=== PATIENT | female | born 1985 | race Caucasian/White ===

== ENCOUNTER 2016-11-05 14:34 | Outpatient (CLI) | payer OTHER | END 2016-11-05 14:35 | disposition home or self-care (01) | DX: O36.5930 Maternal care for other known or suspected poor fetal growth, third trimester, not applicable or unspecified (principal) ==

== ENCOUNTER 2016-11-13 | Outpatient (CLI) | payer OTHER | END 2016-11-13 17:10 | disposition home or self-care (01) ==

== ENCOUNTER 2016-11-22 10:02 | Outpatient (CLI) | payer OTHER | END 2016-11-22 10:03 | disposition home or self-care (01) | DX: O48.0 Post-term pregnancy (principal); Z3A.41 41 weeks gestation of pregnancy ==

== ENCOUNTER 2016-11-24 05:06 | Inpatient (IN) | payer OTHER ==
[2016-11-24] MEDS ORDERED: LACTATED RINGERS 1,000 ML IV ONE ×2 (05:42→06:46)
[2016-11-24] MEDS ORDERED: SUFENTA/BUPIV 0.4 MCG/0.0625% 150 ML EP ONE (06:34)
[2016-11-24] MEDS ORDERED: fentaNYL 100 MCG/2 ML VIAL ONE (06:34)
[2016-11-24] MEDS ORDERED: fentaNYL 100 MCG/2 ML VIAL IVP ONE (06:40)
[2016-11-24] MEDS ORDERED: ROPIVACAINE 0.2% PF 10 ML VIAL EPI ONE (06:40)
[2016-11-24] MEDS ORDERED: ePHEDrine 50 MG/ML AMP IVP PRN (07:43)
[2016-11-24] MEDS ORDERED: NALBUPHINE 20 MG/ML AMP IVP PRN (07:43)
[2016-11-24] MEDS ORDERED: diphenhydrAMINE INJ 50 MG/ML VIAL IVP PRN (07:43)
[2016-11-24] MEDS ORDERED: SUFENTA/BUPIV 0.4 MCG/0.0625% EPIDURAL 150 ML EP PRN (07:43)
[2016-11-24] MEDS ORDERED: LACTATED RINGERS 500 ML IV ONE (07:43)
[2016-11-24] MEDS ORDERED: METOCLOPRAMIDE 10 MG/2 ML VIAL IVP PRN (07:43)
[2016-11-24] MEDS ORDERED: ONDANSETRON 4 MG/2 ML VIAL IVP PRN (07:43)
[2016-11-24] MEDS ORDERED: NALOXONE 0.4 MG/ML VIAL IVP PRN (07:43)
[2016-11-24] MEDS ORDERED: OXYTOCIN/LACTATED RINGERS 250 ML IV SCH (09:00)
[2016-11-24] MEDS ORDERED: LIDOCAINE 1% 50 ML MDV ONE (13:58)
[2016-11-24] MEDS ORDERED: ACETAMINOPHEN 325 MG TABLET PO PRN (14:44)
[2016-11-24] MEDS ORDERED: MAGNESIUM HYDROXIDE 2,400 MG/30 ML UDC PO PRN (14:44)
[2016-11-24] MEDS ORDERED: OXYTOCIN/LACTATED RINGERS 250 ML IV ONE (14:48)
[2016-11-24] MEDS ORDERED: HYDROCORTISONE 1% CREAM 28 GM TUBE PR PRN (14:48)
[2016-11-24] MEDS ORDERED: WITCH HAZEL/GLYCERIN 1 EACH MED..PAD TOP PRN (14:48)
[2016-11-24] MEDS ORDERED: RHO(D) IMMUNE GLOBULIN 300 MCG SYRINGE IVP ONE (14:48)
[2016-11-24] MEDS: CELECOXIB 100 MG CAPSULE PO SCH (18:55)
[2016-11-24] MEDS: HYDROcod/ACETAM 5/325 MG TABLET PO PRN (18:59)
[2016-11-24] MEDS: HYDROCORTISONE/PRAMOXINE 10 GM PR PRN (19:19)
[2016-11-24] MEDS: DOCUSATE SODIUM 100 MG CAPSULE PO SCH (20:55)
[2016-11-25] MEDS: HYDROcod/ACETAM 5/325 MG TABLET PO PRN ×4 (00:24→15:41)
[2016-11-25] MEDS ORDERED: SODIUM CHLORIDE FLUSH 0.9% 10 ML SYRINGE IVP ONE ×2 (05:30→16:59)
[2016-11-25] MEDS: CELECOXIB 100 MG CAPSULE PO SCH ×2 (07:46→22:03)
[2016-11-25] MEDS: DOCUSATE SODIUM 100 MG CAPSULE PO SCH ×2 (07:46→22:03)
[2016-11-25] MEDS: FLUTICASONE/SALMETEROL 250/50 INHALER INH SCH ×2 (10:00→22:04)
[2016-11-25] MEDS: SIMETHICONE CHEW 80 MG TABLET PO SCH ×3 (17:15→23:34)
[2016-11-25] MEDS ORDERED: IOPAMIDOL-300 100 ML VIAL IVP ONE (17:40)
[2016-11-25] MEDS: ACETAMINOPHEN 500 MG TABLET PO SCH (18:34)
[2016-11-25] MEDS: oxyCODONE 5 MG TABLET PO SCH ×2 (18:35→23:44)
[2016-11-25] MEDS ORDERED: RHO(D) IMMUNE GLOBULIN 300 MCG SYRINGE IVP ONE (19:00)
[2016-11-25] MEDS ORDERED: ZOLPIDEM 5 MG TABLET PO PRN (19:38)
[2016-11-26] MEDS: ACETAMINOPHEN 500 MG TABLET PO SCH ×2 (04:50→14:52)
[2016-11-26] MEDS: oxyCODONE 5 MG TABLET PO SCH ×5 (04:51→17:20)
[2016-11-26] MEDS: FLUTICASONE/SALMETEROL 250/50 INHALER INH SCH (05:00)
[2016-11-26] MEDS: CELECOXIB 100 MG CAPSULE PO SCH (10:29)
[2016-11-26] MEDS: DOCUSATE SODIUM 100 MG CAPSULE PO SCH (10:29)
[2016-11-26] MEDS: SIMETHICONE CHEW 80 MG TABLET PO SCH (10:32)
[2016-11-26] MEDS: HYDROCORTISONE/PRAMOXINE 10 GM PR PRN (17:20)
== END 2016-11-26 18:45 | disposition home or self-care (01) | DRG 775 ==
PROC: 10D07Z6 Extraction of Products of Conception, Vacuum, Via Natural or Artificial Opening (ICD-10-PCS; principal; 2016-11-24)
PROC: 0DQR0ZZ Repair Anal Sphincter, Open Approach (ICD-10-PCS; 2016-11-24)
DX: O24.429 Gestational diabetes mellitus in childbirth, unspecified control (principal); O70.20 Third degree perineal laceration during delivery, unspecified; O76 Abnormality in fetal heart rate and rhythm complicating labor and delivery; O48.0 Post-term pregnancy; O26.893 Other specified pregnancy related conditions, third trimester; Z67.41 Type O blood, Rh negative; Z3A.41 41 weeks gestation of pregnancy; Z37.0 Single live birth

== ENCOUNTER 2017-06-22 19:02 | Outpatient (CLI) | payer OTHER ==
[2017-06-22] MEDS ORDERED: IOPAMIDOL-300 100 ML VIAL IVP ONE (21:09)
[2017-06-22] MEDS ORDERED: IOPAMIDOL-300 50 ML VIAL PO ONE (21:09)
--- NOTE | 2017-06-22 21:40 | CT Preliminary Report ---
Exam: CT Abdomen/Pelvis W/ IMPRESSION: 1. Appendicitis without evidence of perforation. 2. Moderate nonspecific mesenteric and right lower quadrant adenopathy. 3. Small amount of free cul-de-sac fluid. [facility] SITE ID: [id number]
--- NOTE | 2017-06-22 21:51 | CT Report ---
EXAM: CT ABDOMEN AND PELVIS EXAM DATE: 06/22/2017 09:13 PM. CLINICAL HISTORY: Abdominal pain, right lower quadrant. COMPARISONS: 11/25/2016. TECHNIQUE: Routine helical CT imaging was performed through the abdomen and pelvis. IV contrast: 100 mL Isovue-300. Enteric contrast: Oral. Reconstructions: Coronal and sagittal. In accordance with CT protocol optimization, one or more of the following dose reduction techniques w ere utilized for this exam: automated exposure control, adjustment of mA and/or KV based on patient s ize, or use of iterative reconstructive technique. FINDINGS: Lung Bases: Unremarkable. Liver: Normal. No masses. Gallbladder/Bile Ducts: Unremarkable. Spleen: Normal. Pancreas: Normal. Adrenal Glands: Normal. Kidneys: Normal. No masses or hydronephrosis. Peritoneal Cavity/Bowel: No free air nor free fluid. Multiple mild and moderately enlarged mesenteric lymph nodes. No masses or acute inflammatory process. Appendix measures 11 mm in cross-sectional diameter with mildly thickened and enhancing roman. Very s mall amount of adjacent edema. No extraluminal air nor focal fluid collections. Numerous small right lower quadrant mesenteric lymph nodes. Pelvic Organs: Small amount of free cul-de-sac fluid. The bladder and visualized pelvic organs are wi thin normal limits. Vasculature: No aneurysms or other significant abnormality. Bones: No significant abnormality. Other: None. IMPRESSION: 1. Appendicitis without evidence of perforation. 2. Moderate nonspecific mesenteric and right lower quadrant adenopathy. 3. Small amount of free cul-de-sac fluid. [facility] Referring Provider Line: [phone] SITE ID: [id number]
== END 2017-06-22 19:03 | disposition home or self-care (01) ==
LOC: DI 19:02
PROVIDERS: ATTEND Family Medicine
DX: K37 Unspecified appendicitis (principal); R10.31 Right lower quadrant pain; R59.0 Localized enlarged lymph nodes
CPT/HCPCS: 36415; 74177; 80053; 83690; 85025; 86140; Q9967

== ENCOUNTER 2017-06-22 19:55 | Outpatient (CLI) | payer OTHER ==
[2017-06-22 19:21] LABS: ALBUMIN/GLOBULIN RATIO 1.2 (1.0-2.2); BILIRUBIN,TOTAL 0.3 mg/dL (0.2-1.0); CALCIUM 8.9 mg/dL (8.5-10.3); CREATININE 0.5 mg/dL (0.4-1.0); POTASSIUM 3.8 mmol/L (3.5-5.0); TOTAL PROTEIN 7.4 g/dL (6.7-8.2)
[2017-06-22 19:33] LABS: BASOPHILS % (AUTO) 0.4 %; EOSINOPHILS # (AUTO) 0.3 10^3/uL (0.0-0.7); EOSINOPHILS % (AUTO) 2.5 %; HCT - HEMATOCRIT 36.2 % (37.0-47.0); HGB - HEMOGLOBIN 11.8 g/dL (12.0-16.0); LYMPHOCYTES % (AUTO) 28.2 %; MEAN CORPUSCULAR HEMOGLOBIN 27.2 pg (27.0-31.0); MEAN CORPUSCULAR HGB CONC 32.6 g/dL (32.0-36.0); MEAN CORPUSCULAR VOLUME 83.4 fL (81.0-99.0); MEAN PLATELET VOLUME 8.7 fL (7.9-10.8); MONOCYTES # (AUTO) 0.9 10^3/uL (0.0-1.0); NEUTROPHILS # (AUTO) 6.3 10^3/uL (1.5-6.6); NEUTROPHILS % (AUTO) 59.9 %; NUCLEATED RED BLOOD CELLS AUTO 0.1 /100WBC; RED BLOOD COUNT 4.35 10^6/uL (4.20-5.40); RED CELL DISTRIBUTION WIDTH 14.4 % (12.0-15.0); UNCORRECTED WHITE BLOOD COUNT 10.5 x10^3/uL; WHITE BLOOD COUNT 10.5 x10^3/uL (4.8-10.8)
== END 2017-06-22 19:56 | disposition home or self-care (01) ==
LOC: LAB.WCP 19:55
PROVIDERS: ATTEND Family Medicine
DX: R10.31 Right lower quadrant pain (principal)
CPT/HCPCS: 36415; 80053; 83690; 85025; 86140

== ENCOUNTER 2017-06-23 11:43 | Outpatient (CLI) | payer OTHER ==
[2017-06-23 12:12] LABS: BASOPHILS % (AUTO) 0.5 %; EOSINOPHILS # (AUTO) 0.2 10^3/uL (0.0-0.7); EOSINOPHILS % (AUTO) 2.5 %; HCT - HEMATOCRIT 36.3 % (37.0-47.0); HGB - HEMOGLOBIN 12.1 g/dL (12.0-16.0); LYMPHOCYTES # (AUTO) 2.7 10^3/uL (1.5-3.5); LYMPHOCYTES % (AUTO) 29.1 %; MEAN CORPUSCULAR HEMOGLOBIN 27.4 pg (27.0-31.0); MEAN CORPUSCULAR HGB CONC 33.3 g/dL (32.0-36.0); MEAN CORPUSCULAR VOLUME 82.2 fL (81.0-99.0); MEAN PLATELET VOLUME 7.9 fL (7.9-10.8); MONOCYTES # (AUTO) 0.7 10^3/uL (0.0-1.0); MONOCYTES % (AUTO) 7.4 %; NEUTROPHILS # (AUTO) 5.6 10^3/uL (1.5-6.6); NEUTROPHILS % (AUTO) 60.5 %; RED BLOOD COUNT 4.42 10^6/uL (4.20-5.40); RED CELL DISTRIBUTION WIDTH 14.5 % (12.0-15.0); UNCORRECTED WHITE BLOOD COUNT 9.2 x10^3/uL; WHITE BLOOD COUNT 9.2 x10^3/uL (4.8-10.8)
== END 2017-06-23 11:44 | disposition home or self-care (01) ==
LOC: LAB 11:43
PROVIDERS: ATTEND Surgery
DX: K37 Unspecified appendicitis (principal)
CPT/HCPCS: 36415; 85025

== ENCOUNTER 2017-11-08 16:45 | Emergency (ER) | payer OTHER ==
[2017-11-08 17:09] LABS: BILIRUBIN,URINE NEGATIVE (NEGATIVE); GLUCOSE, URINE (UA) NEGATIVE (NEGATIVE); KETONES,URINE (UA) NEGATIVE (NEGATIVE); LEUKOCYTE ESTERASE, URINE SMALL (NEGATIVE); NITRITE,URINE NEGATIVE (NEGATIVE); OCCULT BLOOD,URINE TRACE-INTA (NEGATIVE); PROTEIN,URINE NEGATIVE (NEGATIVE); UROBILINOGEN,URINE 0.2 (NORMAL) E.U./dL (NORMAL)
[2017-11-08 17:13] LABS: CLARITY,URINE CLEAR (CLEAR)
[2017-11-08 17:14] LABS: HCG UR QUAL POSITIVE
[2017-11-08] MEDS ORDERED: RHO(D) IMMUNE GLOBULIN 300 MCG SYRINGE IM ONE (17:17)
--- NOTE | 2017-11-08 17:18 | ED Physician Documentation ---
PD HPI ABD PAIN - Stated complaint Stated Complaint: FEMALE /6 WEEKS - Chief complaint Chief Complaint: Abd Pain - History obtained from History obtained from: Patient - History of Present Illness Timing - onset: Other ( at 6 weeks by dates presents with slight vaginal bleeding over the last 2 days and slight cramping. Blood type is known O- from prior workup.) Review of Systems Constitutional: denies: Fever, Chills GI: denies: Abdominal Pain, Nausea, Vomiting, Diarrhea : denies: Dysuria, Frequency, Hesitancy PD PAST MEDICAL HISTORY - Past Medical History Respiratory: Asthma - Past Surgical History Past Surgical History: No - Present Medications Home Medications: Ambulatory Orders Medication Instructions Recorded Confirmed Fluticasone/Salmeterol [Advair 1 puffs INH DAILY 06/01/16 11/08/17 100-50 Diskus] Pnv95/Ferrous Fumarate/FA 1 tab PO DAILY 06/01/16 11/08/17 [ Tablet] - Allergies Allergies/Adverse Reactions: Allergies Allergy/AdvReac Type Severity Reaction Status Date / Time Penicillins AdvReac Rash Verified 11/08/17 16:52 - Social History Does the pt smoke?: No Smoking Status: Never smoker Does the pt drink ETOH?: No Does the pt have substance abuse?: No - Immunizations Immunizations are current?: Yes - POLST Patient has POLST: No PD ED PE NORMAL - Vitals Vital signs reviewed: Yes - General General: Alert and oriented X 3, No acute distress - Abdomen Abdomen: Soft, Non tender - Female Female : Other (I am unable to visualize an intrauterine on bedside ultrasound.) - Neuro Neuro: Alert and oriented X 3, Normal speech Results - Vitals Vitals: Vital Signs - 24 hr 11/08/17 16:49 Temperature 35.9 C L Heart Rate 84 Respiratory 18 Rate Blood Pressure 136/69 H O2 Saturation 100 Oxygen O2 Source Room air - Labs Labs: Laboratory Tests 11/08/17 11/08/17 11/08/17 17:00 17:00 17:25 HCG, Quant 8051.00 Urine Color STRAW Urine Clarity CLEAR Urine pH 6.0 Ur Specific Holt <=1.005 <=1.005 Urine Protein NEGATIVE Urine Glucose (UA) NEGATIVE Urine Ketones NEGATIVE Urine Occult Blood TRACE-INTA Urine Nitrite NEGATIVE Urine Bilirubin NEGATIVE Urine Urobilinogen 0.2 (NORMAL) Ur Leukocyte Esterase SMALL H Urine RBC 0-5 Urine WBC 6-10 H Ur Squamous Epith Cells MOD Squamous H Urine Bacteria Rare Ur Microscopic Review INDICATED Urine HCG, Qual POSITIVE - Rads (name of study) Pelvic sono Radiology: Prelim report reviewed (yolk sac/gs 5w3d without obvious embryo) PD MEDICAL DECISION MAKING - ED course ED course: 32yo with mild VB and cramping without obvious IUP and HCG of 8051. Sono is equivocal and followup for rpt HCG is advised. Departure - Departure Disposition: 01 Home, Self Care Clinical Impression: Threatened affecting intrauterine Condition: Good Record reviewed to determine appropriate education?: Yes Instructions: ED Miscarriage Poss Comments: Follow-up with Dr. Olson in 2-3 days time, she will probably want to repeat your beta-hCG to see which direction it is going and potentially another ultrasound in a week or 2. Return if worsening.
[2017-11-08 17:28] LABS: BACTERIA,URINE Rare /HPF (None Seen); RBC,URINE 0-5 /HPF (0-5); SQUAMOUS EPITHELIAL CELL,UR MOD Squamous (<= Few)
--- NOTE | 2017-11-08 19:36 | Ultrasound Report ---
EXAM: FIRST TRIMESTER OBSTETRIC ULTRASOUND (Less than 11 weeks) EXAM DATE: 11/08/2017 06:41 PM. CLINICAL HISTORY: Cramping/bleeding, 6 weeks. LMP: 09/27/2017. COMPARISONS: None. TECHNIQUE: Transabdominal and transvaginal ultrasound examination with static image documentation. CLINICAL DATES: EGA 6 weeks 0 days. ASSESSMENT: Uterus: Intrauterine gestational sac with a mean gestational sac diameter of 7 mm corresponding to 5 weeks 3 days. Yolk sac seen. No embryo identified. MATERNAL STRUCTURES: Uterus: Anteverted. Unremarkable. Cervix: Closed. Right Ovary/Adnexa: Right ovarian corpus luteum measuring 1.9 cm. The ovary measures 2.6 x 2.4 x 3.0 cm, volume 9.7 cc. Left Ovary/Adnexa: Unremarkable. The ovary measures 1.5 x 1.7 x 2.0 cm, volume 2.7 cc. Free Fluid: None. Other: None. IMPRESSION: 1. Intrauterine gestational sac with yolk sac identified although no embryo is seen. This can be norm al due to the early age of the although correlation with serial quantitative hCG is suggest ed to assess viability. In clinically confusing cases, follow-up ultrasound in 10-14 days may be help [facility] Referring Provider Line: [phone] SITE ID: [id number]
--- NOTE | 2017-11-08 19:36 | Ultrasound Preliminary Report ---
Exam: US OB FIRST TRIMESTER IMPRESSION: 1. Intrauterine gestational sac with yolk sac identified although no embryo is seen. This can be norm al due to the early age of the although correlation with serial quantitative hCG is suggest ed to assess viability. In clinically confusing cases, follow-up ultrasound in 10-14 days may be help ful. [facility] SITE ID: [id number]
[2017-11-08 19:50] VITALS: BP 119/62
== END 2017-11-08 19:53 | disposition home or self-care (01) ==
LOC: ED 16:45
DX: O20.0 Threatened abortion (principal); O99.511 Diseases of the respiratory system complicating pregnancy, first trimester; J45.909 Unspecified asthma, uncomplicated; Z3A.01 Less than 8 weeks gestation of pregnancy
CPT/HCPCS: 36415; 76801; 76817; 81001; 81003; 81025; 84702; 96372; 99283; 99284

== ENCOUNTER 2017-11-12 09:33 | Outpatient (CLI) | payer OTHER | END 2017-11-12 09:34 | disposition home or self-care (01) | LOC: LAB 09:33 | PROVIDERS: ATTEND Obstetrics & Gynecology | DX: O20.0 Threatened abortion (principal) | CPT/HCPCS: 36415; 84702 ==

== ENCOUNTER 2017-11-13 08:18 | Outpatient (CLI) | payer OTHER ==
--- NOTE | 2017-11-13 12:04 | Ultrasound Report ---
REVISED: THIS REPORT WAS ORIGINALLY SIGNED ON 11/13/2017 @ 1235 . ORDERS LINKED ON 12/15/2017. FIRST TRIMESTER OB ULTRASOUND: CLINICAL INDICATION: Threatened , check viability. TECHNIQUE: Transabdominal pelvic ultrasound performed for global evaluation. Transvaginal pelvic ultrasound performed for detailed evaluation. Real-time scanning performed and static images obtained. COMPARISON: 11/08/2017. LAST MENSTRUAL PERIOD: 09/27/2017 Clinical Age: 6 weeks 5 days US Age: 6 weeks 1 day Heart Rate: 128 bpm EDC: 07/04/2018 US EDC: 07/08/2018 FINDINGS There is a single viable intrauterine gestation. heart rate is 128 BPM. By crown rump length, fetus measures 6 weeks 1 day (6 weeks 5 days by LMP). No perigestational hemorrhage is identified. The gestational sac does not appear to reside in the cornu. The right ovary measures 4.0 x 2.9 x 2.4 cm, and contains a 2.8 cm corpus luteum. The left ovary measures 2.3 x 2.1 x 1.2 cm, and is unremarkable. Trace free fluid is present. IMPRESSION: SINGLE VIABLE INTRAUTERINE GESTATION, WITH SIZE IN KEEPING WITH LMP DATING. NO PERIGESTATIONAL HEMORRHAGE. TD: 11/13/2017 11:33 MTDD
== END 2017-11-13 08:19 | disposition home or self-care (01) ==
LOC: DI 08:18
PROVIDERS: ATTEND Obstetrics & Gynecology
DX: O20.0 Threatened abortion (principal)
CPT/HCPCS: 76801; 76817

== ENCOUNTER 2017-11-19 10:27 | Outpatient (CLI) | payer OTHER | END 2017-11-19 10:28 | disposition home or self-care (01) | LOC: LAB.R 10:27 | PROVIDERS: ATTEND Obstetrics & Gynecology | DX: Z11.3 Encounter for screening for infections with a predominantly sexual mode of transmission (principal) | CPT/HCPCS: 87491; 87591 ==

== ENCOUNTER 2017-12-09 07:39 | Outpatient (CLI) | payer OTHER ==
[2017-12-09 08:09] LABS: BASOPHILS % (AUTO) 0.6 %; EOSINOPHILS # (AUTO) 0.3 10^3/uL (0.0-0.7); EOSINOPHILS % (AUTO) 3.4 %; HGB - HEMOGLOBIN 11.6 g/dL (12.0-16.0); LYMPHOCYTES # (AUTO) 2.5 10^3/uL (1.5-3.5); LYMPHOCYTES % (AUTO) 34.3 %; MEAN CORPUSCULAR HEMOGLOBIN 26.7 pg (27.0-31.0); MEAN CORPUSCULAR HGB CONC 33.2 g/dL (32.0-36.0); MEAN CORPUSCULAR VOLUME 80.4 fL (81.0-99.0); MEAN PLATELET VOLUME 8.2 fL (7.9-10.8); MONOCYTES # (AUTO) 0.5 10^3/uL (0.0-1.0); MONOCYTES % (AUTO) 6.8 %; NEUTROPHILS # (AUTO) 4.1 10^3/uL (1.5-6.6); NEUTROPHILS % (AUTO) 54.9 %; PLT - PLATELET COUNT 276 10^3/uL (130-450); RED BLOOD COUNT 4.33 10^6/uL (4.20-5.40); RED CELL DISTRIBUTION WIDTH 15.9 % (12.0-15.0); WHITE BLOOD COUNT 7.4 x10^3/uL (4.8-10.8)
[2017-12-09 08:38] LABS: HB2 TOTAL 13.1 g/dL; HEMOGLOBIN A1C 0.58 g/dL; HEMOGLOBIN A1C % 6.2 % (4.6-6.2)
[2017-12-09 09:08] LABS: BILIRUBIN,URINE NEGATIVE (NEGATIVE); GLUCOSE, URINE (UA) NEGATIVE (NEGATIVE); KETONES,URINE (UA) NEGATIVE (NEGATIVE); LEUKOCYTE ESTERASE, URINE TRACE (NEGATIVE); NITRITE,URINE NEGATIVE (NEGATIVE); OCCULT BLOOD,URINE SMALL (NEGATIVE); PROTEIN,URINE NEGATIVE (NEGATIVE); UROBILINOGEN,URINE 0.2 (NORMAL) E.U./dL (NORMAL)
[2017-12-09 09:17] LABS: BACTERIA,URINE Many /HPF (None Seen); CLARITY,URINE HAZY (CLEAR); MUCUS,URINE Marked Strands; RBC,URINE 0-5 /HPF (0-5); SQUAMOUS EPITHELIAL CELL,UR MANY Squamous (<= Few)
[2017-12-10 13:27] LABS: HEPATITIS C ANTIBODY NON-REACTIVE (NON-REACTIVE)
[2017-12-10 13:28] LABS: HEPATITIS B SURFACE ANTIGEN NON-REACTIVE (NON-REACTIVE)
[2017-12-10 15:22] LABS: HIV AG/AB 4TH GEN NON-REACTIVE (NON-REACTIVE)
== END 2017-12-09 07:40 | disposition home or self-care (01) ==
LOC: LAB 07:39
PROVIDERS: ATTEND Obstetrics & Gynecology
DX: Z36.9 Encounter for antenatal screening, unspecified (principal); Z3A.01 Less than 8 weeks gestation of pregnancy
CPT/HCPCS: 36415; 81001; 81599; 82950; 83036; 85025; 86592; 86762; 86803; 86850; 86870; 86900; 86901; 87340; 87389

== ENCOUNTER 2017-12-15 12:02 | Outpatient (CLI) | payer OTHER ==
[2017-12-15 12:38] LABS: BASOPHILS % (AUTO) 0.5 %; EOSINOPHILS # (AUTO) 0.2 10^3/uL (0.0-0.7); EOSINOPHILS % (AUTO) 2.2 %; HGB - HEMOGLOBIN 12.3 g/dL (12.0-16.0); LYMPHOCYTES # (AUTO) 2.6 10^3/uL (1.5-3.5); LYMPHOCYTES % (AUTO) 28.7 %; MEAN CORPUSCULAR HEMOGLOBIN 26.7 pg (27.0-31.0); MEAN CORPUSCULAR HGB CONC 33.2 g/dL (32.0-36.0); MEAN CORPUSCULAR VOLUME 80.4 fL (81.0-99.0); MONOCYTES # (AUTO) 0.6 10^3/uL (0.0-1.0); MONOCYTES % (AUTO) 6.3 %; NEUTROPHILS # (AUTO) 5.7 10^3/uL (1.5-6.6); NEUTROPHILS % (AUTO) 62.3 %; PLT - PLATELET COUNT 303 10^3/uL (130-450); RED CELL DISTRIBUTION WIDTH 15.3 % (12.0-15.0); WHITE BLOOD COUNT 9.1 x10^3/uL (4.8-10.8)
[2017-12-15 12:42] LABS: BILIRUBIN,URINE NEGATIVE (NEGATIVE); GLUCOSE, URINE (UA) NEGATIVE (NEGATIVE); KETONES,URINE (UA) NEGATIVE (NEGATIVE); LEUKOCYTE ESTERASE, URINE NEGATIVE (NEGATIVE); NITRITE,URINE NEGATIVE (NEGATIVE); OCCULT BLOOD,URINE LARGE (NEGATIVE); PH,URINE 5.5 PH (5.0-7.5); PROTEIN,URINE NEGATIVE (NEGATIVE); UROBILINOGEN,URINE 0.2 (NORMAL) E.U./dL (NORMAL)
[2017-12-15 12:43] LABS: CLARITY,URINE CLEAR (CLEAR)
== END 2017-12-15 12:03 | disposition home or self-care (01) ==
LOC: LAB 12:02
PROVIDERS: ATTEND Obstetrics & Gynecology
DX: Z01.812 Encounter for preprocedural laboratory examination (principal); O02.1 Missed abortion; Z3A.11 11 weeks gestation of pregnancy
CPT/HCPCS: 36415; 81003; 85025; 86850; 86870; 86900; 86901

== ENCOUNTER 2017-12-16 10:46 | Day surgery (SDC) | payer OTHER ==
[2017-12-16] MEDS ORDERED: LACTATED RINGERS 1,000 ML IV ONE (11:17)
--- NOTE | 2017-12-16 12:27 | PREOP HISTORY & PHYSICAL ---
DATE OF SERVICE: 12/16/2017 Physician: Jonn Glaser MD PATIENT IDENTIFICATION: The patient is a 32-year-old G2, P1, female who presents at 11 weeks EGA. HISTORY OF PRESENT ILLNESS: Missed . The patient was seen in the clinic yesterday, at which time because of vaginal bleeding she had a transvaginal ultrasound, which showed an 11-week size gestation without any cardiac activity. Doppler flow was utilized and still no cardiac activity is seen. She has a history of having had some bleeding early in her . She received RhoGAM for that and at 8 weeks she had an ultrasound, which documented a live gestation. She denies any previous history of miscarriages. She recently has delivered a healthy infant. She is noted to be Rh negative and she has received RhoGAM in the past. PAST MEDICAL HISTORY: Gestational Diabetes, Asthma. SURGICAL HISTORY: None. She denies any C-sections or D and C's. ALLERGIES: PENICILLIN, WHICH CAUSES RASH. CURRENT MEDICATIONS 1. vitamins. 2. Advair. HABITS: The patient drinks alcohol only occasionally. Denies use of tobacco, street or addictive drugs. SOCIAL HISTORY: The patient is and lives with her spouse and children. Her is active duty [employer]. FAMILY HISTORY: Positive for diabetes, hypertension, myocardial infarction. 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 REVIEW OF SYSTEMS: Negative with the exception of the need for glasses. PHYSICAL EXAMINATION GENERAL: The patient is a well-developed, well-nourished female. She is in no acute distress at this time. VITAL SIGNS: Weight 74.6 kg. Height 5 feet 5 inches. Blood pressure 106/64. She is saturating 100% on room air. Pulse is 84. HEENT: Pupils equal, round. Extraocular muscles intact. Thyroid is not palpably enlarged. HEART: Regular rate and rhythm without murmurs. LUNGS: Lung leong are clear without rales or wheezes. ABDOMEN: Soft, nontender without evidence of any surgical scars. EXTREMITIES: Showed no evidence of any calf tenderness. PELVIC: She had a previous ultrasound, which showed an 8-week gestation without cardiac activity. DIAGNOSIS: Eleven weeks with 8-week miscarriage. This is 3 weeks following the demise. Options were presented to the patient, which include observation versus the use of Cytotec. She requests utilizing dilatation and curettage. Risks and benefits were explained to the patient including those, but not limited to bleeding, infection, injury to pelvic organs, which include the uterus, tubes, ovaries, bowel, bladder and ureters. She is aware of the potential for deep venous thrombosis with pulmonary embolus as well as postop adhesions, which could cause pain, bowel obstruction and infertility. She is also aware of the possibility of retained products of conception. TD: 12/16/2017 12:25 MTDSanto
[2017-12-16] MEDS ORDERED: KETOROLAC 30 MG/ML VIAL IVP ONE (12:40)
[2017-12-16] MEDS ORDERED: PROPOFOL 200 MG/20 ML VIAL IVP ONE (12:40)
[2017-12-16] MEDS ORDERED: ONDANSETRON 4 MG/2 ML VIAL IVP ONE (12:40)
[2017-12-16] MEDS ORDERED: DEXAMETHASONE 4 MG/ML VIAL IVP ONE (12:40)
[2017-12-16] MEDS ORDERED: fentaNYL 100 MCG/2 ML VIAL IVP ONE (12:40)
--- NOTE | 2017-12-16 13:56 | OPERATIVE REPORT ---
DATE OF SERVICE: 12/16/2017 Physician: Jonn Glaser MD PREOPERATIVE DIAGNOSIS: Eleven weeks' gestation with 8-week missed AB. POSTOPERATIVE DIAGNOSIS: Eleven weeks' gestation with 8-week missed AB. NAME OF PROCEDURE: Sharp and Suction dilation and curettage. SURGEON: Jonn Glaser MD ANESTHESIA: Leora Barillas, general anesthetic with LMA. FINDINGS: Uterus sounded to 9 cm. It was noted to be already dilated up to roughly 8 mm. ESTIMATED BLOOD LOSS: 150 mL COMPLICATIONS: None. TISSUE TO PATHOLOGY: Products of conception. DESCRIPTION OF PROCEDURE: Following adequate laryngeal mask airway anesthesia, the patient was placed in the supine position in [facility]. At this point, she was prepped and draped in the usual fashion. A timeout was performed, which concerns were identified such as a PENICILLIN ALLERGY, as well as asthma. At this point, a speculum was placed in the vagina. The cervix was visualized, grasped with a single-tooth tenaculum. Pelvic examination previously revealed an anterior oriented uterus. The uterus was sounded to 9 cm. At this point, a dilator was placed, which was roughly 6 mm. There was no resistance felt. This was dilated up to 9 mm, at which time a resistance was noted. A 9 mm curved suction curette was then placed through the cervix into the uterine cavity. Suction was applied and then rotation was accomplished. The catheter was rotated and gently withdrawn with additional tissue being removed. A flash of clear amniotic fluid was noted. Following this, no further tissue was removed. The suction catheter was replaced a second time , suction applied and rotation was accomplished, and then the catheter was removed. No further tissue was noted at this time and bleeding was noted to be minimal. The endometrial cavity was gently curetted in all 4 quadrants. No further tissue was removed and the suction catheter was placed a third and last time. Once again, no further tissue was removed and the bleeding was minimal. Methergine 0.2 mg was injected IM as that she had asthma. The cervix was released from the single-tooth tenaculum. There was some bleeding from the tenaculum sites. Pressure was applied for roughly a minute and a half and the bleeding resolved. At this point, the procedure was terminated. Sponge and needle counts were correct. The patient was taken to recovery in stable condition. TD: 12/16/2017 13:55 MTDD
[2017-12-16] MEDS ORDERED: RHO(D) IMMUNE GLOBULIN 300 MCG SYRINGE IM ONE (14:00)
[2017-12-16 14:44] VITALS: BP 115/60
== END 2017-12-16 10:47 | disposition home or self-care (01) ==
LOC: SDS 10:46
PROVIDERS: ATTEND Obstetrics & Gynecology
PROC: 10D17ZZ Extraction of Products of Conception, Retained, Via Natural or Artificial Opening (ICD-10-PCS; principal; 2017-12-16 11:45)
DX: O02.1 Missed abortion (principal)
CPT/HCPCS: 59820; J7120

== ENCOUNTER 2018-04-12 08:00 | Outpatient (CLI) | payer OTHER ==
[2018-04-12 12:46] LABS: HCG,QUALITATIVE BLOOD POSITIVE
== END 2018-04-12 08:01 ==
LOC: LAB.WCP 08:00
PROVIDERS: ATTEND Physician Assistant
DX: Z32.01 Encounter for pregnancy test, result positive (principal)
CPT/HCPCS: 36415; 84703

== ENCOUNTER 2018-05-19 10:14 | Outpatient (CLI) | payer OTHER ==
[2018-05-19 12:25] LABS: BILIRUBIN,URINE NEGATIVE (NEGATIVE); GLUCOSE, URINE (UA) NEGATIVE (NEGATIVE); KETONES,URINE (UA) NEGATIVE (NEGATIVE); LEUKOCYTE ESTERASE, URINE TRACE (NEGATIVE); NITRITE,URINE NEGATIVE (NEGATIVE); OCCULT BLOOD,URINE NEGATIVE (NEGATIVE); PROTEIN,URINE NEGATIVE (NEGATIVE); UROBILINOGEN,URINE 0.2 (NORMAL) E.U./dL (NORMAL)
[2018-05-19 12:27] LABS: BASOPHILS % (AUTO) 0.5 %; EOSINOPHILS # (AUTO) 0.1 10^3/uL (0.0-0.7); EOSINOPHILS % (AUTO) 1.3 %; HGB - HEMOGLOBIN 11.7 g/dL (12.0-16.0); LYMPHOCYTES # (AUTO) 2.4 10^3/uL (1.5-3.5); LYMPHOCYTES % (AUTO) 27.1 %; MEAN CORPUSCULAR HEMOGLOBIN 26.8 pg (27.0-31.0); MEAN CORPUSCULAR HGB CONC 33.4 g/dL (32.0-36.0); MEAN CORPUSCULAR VOLUME 80.2 fL (81.0-99.0); MEAN PLATELET VOLUME 8.9 fL (7.9-10.8); MONOCYTES # (AUTO) 0.7 10^3/uL (0.0-1.0); MONOCYTES % (AUTO) 7.8 %; NEUTROPHILS # (AUTO) 5.6 10^3/uL (1.5-6.6); NEUTROPHILS % (AUTO) 63.3 %; PLT - PLATELET COUNT 295 10^3/uL (130-450); RED BLOOD COUNT 4.37 10^6/uL (4.20-5.40); RED CELL DISTRIBUTION WIDTH 15.5 % (12.0-15.0); WHITE BLOOD COUNT 8.8 x10^3/uL (4.8-10.8)
[2018-05-19 12:40] LABS: CLARITY,URINE CLEAR (CLEAR)
[2018-05-19 12:41] LABS: BACTERIA,URINE Few /HPF (None Seen); RBC,URINE 0-5 /HPF (0-5); SQUAMOUS EPITHELIAL CELL,UR MOD Squamous (<= Few)
[2018-05-20 13:51] LABS: HEPATITIS C ANTIBODY NON-REACTIVE (NON-REACTIVE)
[2018-05-20 14:56] LABS: HEPATITIS B SURFACE ANTIGEN NON-REACTIVE (NON-REACTIVE)
[2018-05-20 15:11] LABS: HIV AG/AB 4TH GEN NON-REACTIVE (NON-REACTIVE)
== END 2018-05-19 10:15 | disposition home or self-care (01) ==
LOC: LAB.N 10:14
PROVIDERS: ATTEND Obstetrics & Gynecology
DX: Z34.81 Encounter for supervision of other normal pregnancy, first trimester (principal)
CPT/HCPCS: 36415; 81001; 81599; 85025; 86592; 86762; 86803; 86850; 86870; 86900; 86901; 87340; 87389

== ENCOUNTER 2018-07-05 08:00 | Outpatient (CLI) | payer OTHER | END 2018-07-05 08:01 | LOC: LAB.N 08:00 | PROVIDERS: ATTEND Obstetrics & Gynecology | DX: Z36.89 Encounter for other specified antenatal screening (principal) | CPT/HCPCS: 36415; 81599 ==

== ENCOUNTER 2018-07-15 10:22 | Outpatient (CLI) | payer OTHER | END 2018-07-15 10:23 | LOC: LAB.R 10:22 | PROVIDERS: ATTEND Obstetrics & Gynecology | DX: R82.99 Other abnormal findings in urine (principal) | CPT/HCPCS: 87086; 87181 ==

== ENCOUNTER 2018-08-04 19:49 | Outpatient (CLI) | payer OTHER ==
[2018-08-04 20:36] VITALS: BP 116/59
--- NOTE | 2018-08-04 21:01 | PROVIDER PROGRESS NOTE ---
Subjective - Prog Note Date Prog Note Date: 08/04/18 Prog Note Time: 19:40 - Subjective Subjective: Nolvia Zamudio is a 33-year-old 3 para 1011 At 20 weeks 5 days EGA who reports left groin pain and back pain and with an associated light di scharge on her panties. She is recently been treated for an E. coli urinary tract infection is finished a course of antibiotics. She has no bladder pain, fever, dysuria or urgency. She denies uterine contractions or abdominal pain. Objective - Vital Signs/Intake & Output Vital Signs: Vital Signs x48h Temp Pulse Resp BP Pulse Ox 08/04/18 20:17 98.6 F 76 18 116/59 L 99 Exam - Exam Vital Signs: Vital Signs (72 hours) 08/04/18 20:17 Temperature 98.6 F Heart Rate [ 76 Radial] Respiratory 18 Rate Blood Pressure 116/59 L [Right Brachial artery] O2 Saturation 99 General: Alert, No acute distress HEENT: Mucous membr. moist/pink Abdomen: Normal bowel sounds, No tenderness, No hepatospenomegaly, Other (Uterus flaccid nontender, heart tones present. Pressure above the left inguinal ligament reproduces the pain.. Patient declines cervical exam) Assessment/Plan - Assessment/Plan Assessment: Pain is thought to be musculoskeletal in nature or round ligament pain. Patient is a dancer and quite physically active. By physical exam there was no evidence of hernia. Patient is already been referred to pelvic PT. Plan: Patient discharged home with instructions to follow-up with pelvic PT. If patient's UA is concerning we will call her tomorrow and prescribed antibiotic if necessary.
[2018-08-04 21:06] LABS: BILIRUBIN,URINE NEGATIVE (NEGATIVE); GLUCOSE, URINE (UA) NEGATIVE (NEGATIVE); KETONES,URINE (UA) NEGATIVE (NEGATIVE); LEUKOCYTE ESTERASE, URINE TRACE (NEGATIVE); NITRITE,URINE NEGATIVE (NEGATIVE); OCCULT BLOOD,URINE NEGATIVE (NEGATIVE); PROTEIN,URINE NEGATIVE (NEGATIVE); UROBILINOGEN,URINE 0.2 (NORMAL) E.U./dL (NORMAL)
[2018-08-04 21:20] LABS: BACTERIA,URINE Few /HPF (None Seen); CLARITY,URINE CLEAR (CLEAR); RBC,URINE 0-5 /HPF (0-5); SQUAMOUS EPITHELIAL CELL,UR MOD Squamous (<= Few)
== END 2018-08-04 21:05 | disposition home or self-care (01) ==
LOC: WFO 19:49 → FBP 19:52 → WFO 21:05
PROVIDERS: ATTEND Obstetrics & Gynecology
DX: O99.89 Other specified diseases and conditions complicating pregnancy, childbirth and the puerperium (principal); M54.9 Dorsalgia, unspecified; R10.32 Left lower quadrant pain; Z3A.20 20 weeks gestation of pregnancy
CPT/HCPCS: 81001; 85025; 87086; 99212

== ENCOUNTER 2018-08-10 12:41 | Outpatient (CLI) | payer OTHER ==
--- NOTE | 2018-08-10 14:12 | Ultrasound Report ---
Reason: ENCTR FOR SCREENING Procedure Date: 08/10/2018 Accession Number: [id number] / [id number] Procedure: US - OB Detailed Eval CPT Code: FULL RESULT: EXAM: COMPLETE OBSTETRICAL ULTRASOUND EXAM DATE: 08/10/2018 01:41 PM. CLINICAL HISTORY: anatomic survey. COMPARISON: None. TECHNIQUE: Real-time sonographic evaluation of the fetus performed by the security system analyst. Multiple medical representative static images were saved for review. DATING: EGA 21 weeks 3 days with GAMAL 12/18/2018 based on last menstrual period 03/13/2018. EGA 21 weeks 4 days with GAMAL 12/17/2018 based on the current ultrasound. GENERAL EVALUATION [place] . Cardiac activity: 161 bpm. movement: Present Presentation: Breech Placenta: Anterior position. No evidence for previa. Umbilical cord: 3 vessel cord. Central placental cord origin. Amniotic fluid: Subjectively normal. MVP 4.1 cm. BIOMETRY Bi-Parietal Diameter (BPD): 5.3 cm, 21 weeks 6 days Head Circumference (HC): 20.3 cm, 22 weeks 2 days Abdominal Circumference (AC): 15.9 cm, 21 weeks 0 days Femur Length (FL): 3.6 cm, 21 weeks 3 days Estimated Weight: 420 gm. ANATOMY The intracranial structures, profile, face/nose/lips, spine, 4 chamber heart and outflow tracts, stomach, abdominal wall and cord insertion, diaphragm, kidneys, bladder, and extremities were seen and demonstrate no abnormality. MATERNAL STRUCTURES Uterus: Unremarkable. Cervix: Long and closed. Transabdominal length 3.8 cm. Right ovary/adnexa: Unremarkable. Left ovary/adnexa: Unremarkable. Free fluid: None. IMPRESSION: 1. [place] intrauterine with gestational age 21 weeks 4 days based on the current ultrasound, concordant with expected dates based on LMP.. 2. GAMAL based on LMP is 12/18/2018. 3. Unremarkable anatomic survey. No anatomic abnormalities are detected at this time. [facility]
== END 2018-08-10 12:42 | disposition home or self-care (01) ==
LOC: DI 12:41
PROVIDERS: ATTEND Obstetrics & Gynecology
DX: Z36.9 Encounter for antenatal screening, unspecified (principal); Z3A.21 21 weeks gestation of pregnancy
CPT/HCPCS: 76811

== ENCOUNTER 2018-09-29 07:41 | Outpatient (CLI) | payer OTHER ==
[2018-09-29 09:06] LABS: HGB - HEMOGLOBIN 10.3 g/dL (12.0-16.0); MEAN CORPUSCULAR HEMOGLOBIN 27.8 pg (27.0-31.0); MEAN CORPUSCULAR HGB CONC 33.4 g/dL (32.0-36.0); MEAN PLATELET VOLUME 7.9 fL (7.9-10.8); RED BLOOD COUNT 3.71 10^6/uL (4.20-5.40); RED CELL DISTRIBUTION WIDTH 14.5 % (12.0-15.0); WHITE BLOOD COUNT 10.6 x10^3/uL (4.8-10.8)
== END 2018-09-29 07:42 | disposition home or self-care (01) ==
LOC: LAB 07:41
PROVIDERS: ATTEND Obstetrics & Gynecology
DX: Z33.1 Pregnant state, incidental (principal)
CPT/HCPCS: 36415; 82950; 85027; 86850; 86870

== ENCOUNTER 2018-10-18 07:47 | Outpatient (CLI) | payer OTHER | END 2018-10-18 07:48 | disposition home or self-care (01) | LOC: LAB 07:47 | PROVIDERS: ATTEND Obstetrics & Gynecology | DX: R73.02 Impaired glucose tolerance (oral) (principal) | CPT/HCPCS: 36415; 82951; 82952 ==

== ENCOUNTER 2018-11-07 11:02 | Emergency (ER) | payer OTHER ==
[2018-11-07 11:16] VITALS: BP 130/71
--- NOTE | 2018-11-07 11:31 | ED Physician Documentation ---
History of Present Illness - Stated complaint Stated Complaint: COUGH/CONGESTION 34 WKS PREG - Chief complaint Chief Complaint: Heent - Additonal information Additional information: hx from pt 33 y/o f thrird trimester preg goinf well, feels baby move no bleeding or ctx she has had cough congestion for a month - so has rest of family seen by Dr Olson rx symptomatic meds safe in preg now acutely worse with fever chills head pressure purulent nasal dc and worsening of her cough no leg swelling no travel Review of Systems Constitutional: reports: Fever, Chills Nose: reports: Congestion, Sinus pressure / pain Throat: reports: Sore throat Respiratory: reports: Cough GI: denies: Abdominal Pain, Vomiting, Diarrhea : reports: Now EGA. denies: Vaginal bleeding Endocrine: denies: Easy bruising / bleeding Immunocompromised: denies: Immunocompromised PD PAST MEDICAL HISTORY - Past Medical History Past Medical History: Yes Cardiovascular: None Respiratory: Asthma Endocrine/Autoimmune: Other GI: None : None HEENT: Chronic vision loss Psych: None Musculoskeletal: None Derm: None - Past Surgical History Past Surgical History: No - Present Medications Home Medications: Ambulatory Orders Medication Instructions Recorded Confirmed Pnv95/Ferrous Fumarate/FA 1 tab PO DAILY 06/01/16 11/07/18 [ Tablet] Azithromycin [Zithromax] 250 mg PO DAILY #6 tablet 11/07/18 Benzonatate 100 mg PO TID 11/07/18 11/07/18 Montelukast Sodium 10 mg PO DAILY 11/07/18 11/07/18 raNITIdine [Zantac] 150 mg PO DAILY 11/07/18 11/07/18 - Allergies Allergies/Adverse Reactions: Allergies Allergy/AdvReac Type Severity Reaction Status Date / Time Penicillins AdvReac Rash Verified 12/15/17 16:03 - Social History Does the pt smoke?: No Smoking Status: Never smoker Does the pt drink ETOH?: No Does the pt have substance abuse?: No - Immunizations Immunizations are current?: Yes - POLST Patient has POLST: No PD ED PE NORMAL - Vitals Vital signs reviewed: Yes - HEENT HEENT: PERRL, Moist mucous membranes, Other (+ sinus TTP maxillary > frontal). No: Ears normal (dull, no erythema), Pharynx benign (erythema no exudate or swelling) - Neck Neck: Supple, no meningeal sign - Cardiac Cardiac: RRR - Respiratory Respiratory: No respiratory distress, Clear bilaterally, Other (producitve cough, no wheeze ) - Abdomen Abdomen: Non tender, Other (gravid) - Extremities Extremities: No edema - Neuro Neuro: Alert and oriented X 3 Results - Vitals Vitals: Vital Signs - 24 hr 11/07/18 11:13 Temperature 36.8 C Heart Rate 103 H Respiratory 20 Rate Blood Pressure 130/71 O2 Saturation 99 Oxygen O2 Source Room air - Labs Labs: Laboratory Tests 11/07/18 11/07/18 11:23 11:23 Influenza A (Rapid) Negative Influenza B (Rapid) Negative Group A Strep Rapid Negative PD MEDICAL DECISION MAKING - ED course ED course: worsening cough with congestion and fever concern for secondary infection flu and strep swabs neg prefer not to xray as she is will tx for possible pna and sinusitis failing a month of conservative tx do not feel this cough is due to PE - she has fever and congestion Departure - Departure Disposition: 01 Home, Self Care Clinical Impression: Sinusitis Qualifiers: Sinusitis location: unspecified location Chronicity: acute Recurrence: non- recurrent Qualified Code(s): J01.90 - Acute sinusitis, unspecified Condition: Good Instructions: ED Sinusitis Abx Tx Prescriptions: Azithromycin [Zithromax] 250 mg PO DAILY #6 tablet Comments: The strep and flu swabs were negative. The sinus pressure and inflammation are worsening after a month of symptomatic treatment And with you productive cough there is a concern you may be developing pneumonia (prefer not to xray while you are ) So I have prescribed the antibiotic zithromax whci is category B in and which would cover sinus and lung infections very well. Continue the symptomatic medications as prescribed by Dr Olson Rest and drink plenty of fluids Return if worse
== END 2018-11-07 12:42 | disposition home or self-care (01) ==
LOC: ED 11:02
DX: O99.513 Diseases of the respiratory system complicating pregnancy, third trimester (principal); J01.90 Acute sinusitis, unspecified; R05 Cough; Z3A.34 34 weeks gestation of pregnancy
CPT/HCPCS: 87070; 87275; 87276; 87430; 99283

== ENCOUNTER 2018-11-16 16:18 | Outpatient (CLI) | payer OTHER | END 2018-11-16 16:19 | disposition home or self-care (01) | LOC: LAB.R 16:18 | PROVIDERS: ATTEND Obstetrics & Gynecology | DX: Z3A.35 35 weeks gestation of pregnancy (principal) | CPT/HCPCS: 87797 ==

== ENCOUNTER 2018-11-30 08:00 | Outpatient (CLI) | payer OTHER ==
[2018-11-30 15:36] LABS: BILIRUBIN,URINE NEGATIVE (NEGATIVE); CLARITY,URINE CLEAR (CLEAR); GLUCOSE, URINE (UA) NEGATIVE (NEGATIVE); KETONES,URINE (UA) NEGATIVE (NEGATIVE); LEUKOCYTE ESTERASE, URINE MODERATE (NEGATIVE); NITRITE,URINE NEGATIVE (NEGATIVE); OCCULT BLOOD,URINE NEGATIVE (NEGATIVE); PROTEIN,URINE NEGATIVE (NEGATIVE); UROBILINOGEN,URINE 0.2 (NORMAL) E.U./dL (NORMAL)
[2018-11-30 15:49] LABS: BACTERIA,URINE Few /HPF (None Seen); RBC,URINE None Seen /HPF (0-5); SQUAMOUS EPITHELIAL CELL,UR MANY Squamous (<= Few)
== END 2018-11-30 23:59 | disposition home or self-care (01) ==
LOC: LAB.R 08:00
PROVIDERS: ATTEND Obstetrics & Gynecology
DX: Z3A.37 37 weeks gestation of pregnancy (principal)
CPT/HCPCS: 81001; 81003; 87086

== ENCOUNTER 2018-12-16 20:05 | Inpatient (IN) | payer OTHER ==
[2018-12-16] MEDS ORDERED: fentaNYL 100 MCG/2 ML VIAL IVP PRN (23:10)
[2018-12-16] MEDS ORDERED: ONDANSETRON 4 MG/2 ML VIAL IVP PRN (23:10)
[2018-12-17] MEDS: SODIUM CHLORIDE FLUSH 0.9% 10 ML SYRINGE IVP PRN ×2 (01:37→09:57)
[2018-12-17 01:41] LABS: BASOPHILS # (AUTO) 0.1 10^3/uL (0.0-0.1); BASOPHILS % (AUTO) 0.5 %; EOSINOPHILS # (AUTO) 0.1 10^3/uL (0.0-0.7); EOSINOPHILS % (AUTO) 1.3 %; HGB - HEMOGLOBIN 9.8 g/dL (12.0-16.0); LYMPHOCYTES # (AUTO) 3.4 10^3/uL (1.5-3.5); LYMPHOCYTES % (AUTO) 29.4 %; MEAN CORPUSCULAR HEMOGLOBIN 26.1 pg (27.0-31.0); MEAN CORPUSCULAR VOLUME 79.1 fL (81.0-99.0); MEAN PLATELET VOLUME 9.5 fL (7.9-10.8); MONOCYTES # (AUTO) 0.8 10^3/uL (0.0-1.0); MONOCYTES % (AUTO) 6.7 %; NEUTROPHILS # (AUTO) 7.1 10^3/uL (1.5-6.6); NEUTROPHILS % (AUTO) 62.1 %; PLT - PLATELET COUNT 297 10^3/uL (130-450); RED BLOOD COUNT 3.74 10^6/uL (4.20-5.40); RED CELL DISTRIBUTION WIDTH 15.8 % (12.0-15.0); WHITE BLOOD COUNT 11.5 x10^3/uL (4.8-10.8)
--- NOTE | 2018-12-17 09:06 | HISTORY & PHYSICAL EXAMINATION ---
Admit History - Visit Reason Visit Reason: Contractions (Pt started contractions last PM atabout 1914 arrived Cx /-2. rechecked 2199/-2. contractions regressed. this AM while taking breakfast contractions returned.) - : 4 Parity: 1 : 2 Care: positive: [facility] (Pt 33 yo Ab2. EDC 12/17/18 40.0 weeks. transfered at 27 weeks. corse unremarkable. elivated 50 gm, 3 hour GTT Normal. blood O- Rhubell immune) Smoking Status: Never smoker - Mother's Labs Mother's Blood Type: positive: O Mother's RH: positive: Negative GBS: positive: Group B Step Negative Rubella Status: positive: Non-immune Meds/Allgy - Home Medications Home Medications: Ambulatory Orders Medication Instructions Recorded Confirmed Pnv95/Ferrous Fumarate/FA 1 tab PO DAILY 06/01/16 11/07/18 [ Tablet] Azithromycin [Zithromax] 250 mg PO DAILY #6 tablet 11/07/18 Benzonatate 100 mg PO TID 11/07/18 11/07/18 Montelukast Sodium 10 mg PO DAILY 11/07/18 11/07/18 raNITIdine [Zantac] 150 mg PO DAILY 11/07/18 11/07/18 - Allergies Allergies/Adverse Reactions: Allergies Allergy/AdvReac Type Severity Reaction Status Date / Time Penicillins AdvReac Rash Verified 12/15/17 16:03 Physical - Abdominal Exam Vital Signs: Temp Pulse Resp BP Pulse Ox 36.9 C 78 18 129/74 99 12/16/18 20:28 12/16/18 20:28 12/16/18 20:28 12/16/18 20:28 12/16/18 20:28 Contraction Intensity: positive: Mild to moderate Uterine Resting Tone: positive: Soft - Monitoring Strip Review: positive: Category I - Presentation Presentation: positive: Vertex - Vaginal Exam Membranes: positive: Membranes intact Dilation (in cm): 5 Effacement (%): 80% Station: positive: -2 Cervical Position: positive: Posterior Plan for Labor - Plan For Labor I expect patient to be DC'd or transferred within 96 hours.: Yes Plan for Labor: Pt is 40.0 weeks head not well applied. Start Pit, Epidural then AROM.
[2018-12-17] MEDS: LACTATED RINGERS 1,000 ML IV SCH ×3 (09:59→16:10)
[2018-12-17] MEDS: OXYTOCIN/SODIUM CHLORIDE 500 ML IV SCH ×2 (10:21→22:39)
[2018-12-17] MEDS ORDERED: fent/BUPIV 2 MCG/0.125% 250 ML EP ONE (11:07)
[2018-12-17] MEDS ORDERED: METOCLOPRAMIDE 10 MG/2 ML VIAL IVP PRN (13:36)
[2018-12-17] MEDS ORDERED: ONDANSETRON 4 MG/2 ML VIAL IVP PRN (13:36)
[2018-12-17] MEDS ORDERED: diphenhydrAMINE INJ 50 MG/ML VIAL IVP PRN (13:36)
[2018-12-17] MEDS ORDERED: ePHEDrine 50 MG/ML VIAL IVP PRN (13:36)
[2018-12-17] MEDS ORDERED: NALBUPHINE 10 MG/ML AMP IVP PRN (13:36)
[2018-12-17] MEDS ORDERED: NALOXONE 0.4 MG/ML VIAL IVP PRN (13:36)
[2018-12-17] MEDS ORDERED: LACTATED RINGERS 500 ML IV ONE (13:36)
--- NOTE | 2018-12-17 13:53 | PROVIDER PROGRESS NOTE ---
Labor Progress Note - Uterine Monitoring Contraction Frequency (min/apart): 3-4 Contraction Intensity: positive: Moderate to strong Uterine Resting Tone: positive: Soft - Monitoring Heart Rate Baseline: 150 Heart Rate Variability: positive: Moderate (6-25 bmp) Accelerations: positive: Present, 15x15 Decelerations: positive: Late (Pt had 3 late which have resolved. strip is now Cat 1.) Strip Review: positive: Category I (Previous Cat 2) - Vaginal Exam Dilation (in cm): 6 Effacement (%): 80 Station: -2 - Labor Progress Note Labor Progress Note/Additional Text: Slow progress. Epidural effective pt si sleeping episode of Cat 2 strip which has resolved. restart pitocin Place naranjo when awake. plan to AROM when head decends
--- NOTE | 2018-12-17 17:38 | PROVIDER PROGRESS NOTE ---
Labor Progress Note - Uterine Monitoring Uterine Monitoring Mode: positive: External toco Contraction Frequency (min/apart): 4 Contraction Intensity: positive: Moderate to strong Uterine Resting Tone: positive: Soft - Monitoring Monitor Mode: positive: External ultrasound Heart Rate Baseline: 127 Heart Rate Variability: positive: Moderate (6-25 bmp) Accelerations: positive: Present, 15x15 Decelerations: positive: None Strip Review: positive: Category I - Vaginal Exam Dilation (in cm): 6 Effacement (%): 80% Station: -1 Cervical Position: Midposition - Labor Progress Note Labor Progress Note/Additional Text: Progressing AROM clear expect progress with AROM
[2018-12-17] MEDS ORDERED: fentaNYL 100 MCG/2 ML VIAL ONE (19:08)
[2018-12-17] MEDS ORDERED: ROPIVACAINE 0.2% PF 20 ML AMPULE ONE (19:08)
[2018-12-17] MEDS ORDERED: METHYLERGONOVINE 0.2 MG/ML AMP ONE (19:57)
[2018-12-17] MEDS ORDERED: LIDOCAINE-MPF 1% 30 ML VIAL ONE (20:16)
[2018-12-17] MEDS ORDERED: WITCH HAZEL/GLYCERIN 1 EACH MED..PAD TOP PRN (20:52)
[2018-12-17] MEDS ORDERED: oxyCODONE 5 MG TABLET PO PRN (20:52)
[2018-12-17] MEDS ORDERED: diphenhydrAMINE 25 MG CAPSULE PO PRN (20:52)
[2018-12-17] MEDS ORDERED: HYDROCORTISONE 1% CREAM 28 GM TUBE PR PRN (20:52)
[2018-12-17] MEDS ORDERED: LACTATED RINGERS 1,000 ML IV SCH (21:00)
--- NOTE | 2018-12-17 21:17 | DELIVERY NOTE ---
Delivery Note - Labor Labor: positive: Augmented by ARM, Augmented by oxytocin
[2018-12-17] MEDS: IBUPROFEN 600 MG TABLET PO SCH (21:23)
[2018-12-17] MEDS: DOCUSATE SODIUM 100 MG CAPSULE PO SCH (21:24)
[2018-12-17] MEDS: ACETAMINOPHEN 500 MG TABLET PO SCH (21:24)
--- NOTE | 2018-12-17 21:35 | DELIVERY NOTE ---
Delivery Note - Labor Labor: positive: Spontaneous, Augmented by ARM, Augmented by oxytocin - Infant Delivery Method Infant Delivery Method: positive: Spontaneous vaginal delivery - Presentation Presentation: positive: Vertex, LINNEA - right occiput anterior - Nuchal Cord Nuchal Cord: positive: None - Anesthetic Anesthetic Type: Anesthetic: positive: Lidocaine - 1% plain - Amniotic Fluid Description Amniotic Fluid Description: positive: Clear - Episiotomy Type Episiotomy Type: positive: None - Laceration Laceration: positive: 2nd degree (repared with) - Suture Suture Type: positive: Vicryl Suture Size: positive: 3-0 - Delivery Outcome Delivery Outcome: positive: Livebirth (female 8/9 weight 7lb 5oz delivery at 2013, AROM 1515, Complete st 1946, Placenta 2019 complete) - : positive: Placed in direct skin contact with mother, Bulb syringe sex: positive: Female - Cord Cord: positive: 3 vessels - Placenta Placenta: positive: Intact - Estimated Blood Loss Estimated Blood Loss (in cc): 300 - Post Delivery Events Post Delivery Events: positive: No post delivery events
[2018-12-18] MEDS: IBUPROFEN 600 MG TABLET PO SCH ×4 (03:45→21:40)
[2018-12-18] MEDS: ACETAMINOPHEN 500 MG TABLET PO SCH ×3 (04:56→23:27)
[2018-12-18] MEDS ORDERED: LIDOCAINE-MPF 1% 5 ML VIAL SUBQ ONE (04:58)
[2018-12-18 06:49] LABS: BASOPHILS % (AUTO) 0.2 %; EOSINOPHILS # (AUTO) 0.1 10^3/uL (0.0-0.7); EOSINOPHILS % (AUTO) 1.1 %; HGB - HEMOGLOBIN 7.8 g/dL (12.0-16.0); LYMPHOCYTES # (AUTO) 2.3 10^3/uL (1.5-3.5); LYMPHOCYTES % (AUTO) 19.5 %; MEAN CORPUSCULAR HEMOGLOBIN 26.3 pg (27.0-31.0); MEAN CORPUSCULAR HGB CONC 32.9 g/dL (32.0-36.0); MEAN CORPUSCULAR VOLUME 79.8 fL (81.0-99.0); MEAN PLATELET VOLUME 8.8 fL (7.9-10.8); MONOCYTES # (AUTO) 0.7 10^3/uL (0.0-1.0); MONOCYTES % (AUTO) 5.9 %; NEUTROPHILS # (AUTO) 8.8 10^3/uL (1.5-6.6); NEUTROPHILS % (AUTO) 73.3 %; PLT - PLATELET COUNT 211 10^3/uL (130-450); RED BLOOD COUNT 2.98 10^6/uL (4.20-5.40); RED CELL DISTRIBUTION WIDTH 15.4 % (12.0-15.0)
[2018-12-18] MEDS: SODIUM CHLORIDE FLUSH 0.9% 10 ML SYRINGE IVP PRN ×2 (07:07→12:06)
[2018-12-18] MEDS ORDERED: SODIUM CHLORIDE FLUSH 0.9% 10 ML SYRINGE ONE ×4 (07:10→20:39)
[2018-12-18] MEDS ORDERED: RHO(D) IMMUNE GLOBULIN 300 MCG SYRINGE IM ONE (07:21)
[2018-12-18] MEDS: SIMETHICONE CHEW 80 MG TABLET PO SCH ×2 (08:30→14:00)
[2018-12-18] MEDS: DOCUSATE SODIUM 100 MG CAPSULE PO SCH ×2 (09:14→23:28)
--- NOTE | 2018-12-18 10:30 | PROVIDER PROGRESS NOTE ---
Subjective - Prog Note Date Prog Note Date: 12/18/18 Prog Note Time: 10:27 - Subjective Pt reports feeling: Improved (Pt Pain 2-3 out of 10. C/O TRAN while up. Pt had 5-7 attempts for epidural. Seen by Nae.) Objective - Vital Signs/Intake & Output Reviewed Vital Signs: Yes Vital Signs: Vital Signs x48h Temp Pulse Pulse Resp BP Pulse Ox 12/18/18 09:25 36.9 C 80 80 16 109/65 99 Intake & Output: Intake & Output 12/15/18 12/16/18 12/17/18 12/18/18 23:59 23:59 23:59 23:59 Intake Total 2289.8 500 Output Total 1200 950 Balance 1089.8 -450 - Objective General Appearance: positive: No acute distress (Pt is lying down in bed with light out.) Respiratory: positive: Chest non-tender, No respiratory distress, Breath sounds nml Cardiovascular: positive: Regular rate & rhythm, No murmur, No gallop Abdomen: positive: Non-tender, Tenderness, Mass (U-2) Extremities: negative: Calf tenderness, Joint swelling Neurologic/Psychiatric: positive: Oriented x3 - Lab Results Fish Bones: 12/18/18 06:20 Other Labs: Lab Results x24hrs 12/18/18 12/18/18 Range/Units 06:20 01:40 WBC 12.0 H (4.8-10.8) x10^3/uL RBC 2.98 L (4.20-5.40) 10^6/uL Hgb 7.8 L (12.0-16.0) g/dL Hct 23.8 L (37.0-47.0) % MCV 79.8 L (81.0-99.0) fL MCH 26.3 L (27.0-31.0) pg MCHC 32.9 (32.0-36.0) g/dL RDW 15.4 H (12.0-15.0) % Plt Count 211 (130-450) 10^3/uL MPV 8.8 (7.9-10.8) fL Neut # (Auto) 8.8 H (1.5-6.6) 10^3/uL Lymph # (Auto) 2.3 (1.5-3.5) 10^3/uL [place] # (Auto) 0.7 (0.0-1.0) 10^3/uL Eos # (Auto) 0.1 (0.0-0.7) 10^3/uL Baso # (Auto) 0.0 (0.0-0.1) 10^3/uL Absolute Nucleated RBC 0.00 x10^3/uL Nucleated RBC % 0.0 /100WBC Blood Type O NEGATIVE Maternal Bleed NEGATIVE (NEGATIVE) Assessment/Plan - Problem List (1) (spontaneous vaginal delivery) Impression: Recovering well (2) Anemia affecting Impression: Pt started labor with Hgb 9.8 is 8.7 this AM Discussed Transfusion, Iron IV, Iron oral. will start IV Iron
[2018-12-18] MEDS ORDERED: IRON SUCROSE 200 MG in SODIUM CHLORIDE 0.9% 100ML 100 ML IV ONE (10:36)
[2018-12-18 19:21] LABS: BASOPHILS # (AUTO) 0.1 10^3/uL (0.0-0.1); BASOPHILS % (AUTO) 0.6 %; EOSINOPHILS # (AUTO) 0.2 10^3/uL (0.0-0.7); EOSINOPHILS % (AUTO) 2.5 %; HGB - HEMOGLOBIN 7.7 g/dL (12.0-16.0); LYMPHOCYTES # (AUTO) 2.9 10^3/uL (1.5-3.5); LYMPHOCYTES % (AUTO) 29.8 %; MEAN CORPUSCULAR HEMOGLOBIN 25.3 pg (27.0-31.0); MEAN CORPUSCULAR HGB CONC 31.5 g/dL (32.0-36.0); MEAN CORPUSCULAR VOLUME 80.5 fL (81.0-99.0); MEAN PLATELET VOLUME 8.2 fL (7.9-10.8); MONOCYTES # (AUTO) 0.8 10^3/uL (0.0-1.0); MONOCYTES % (AUTO) 7.8 %; NEUTROPHILS # (AUTO) 5.7 10^3/uL (1.5-6.6); NEUTROPHILS % (AUTO) 59.3 %; PLT - PLATELET COUNT 251 10^3/uL (130-450); RED BLOOD COUNT 3.03 10^6/uL (4.20-5.40); RED CELL DISTRIBUTION WIDTH 15.5 % (12.0-15.0); WHITE BLOOD COUNT 9.7 x10^3/uL (4.8-10.8)
--- NOTE | 2018-12-18 20:04 | PROVIDER PROGRESS NOTE ---
Subjective - Subjective Pt reports feeling: No change (Pt continuse to C/O Dyspnia, TRAN, feeling fatigued.) Objective - Vital Signs/Intake & Output Reviewed Vital Signs: Yes Vital Signs: Vital Signs x48h Temp Pulse Resp BP Pulse Ox 12/18/18 16:38 36.8 C 65 18 124/67 99 Intake & Output: Intake & Output 12/15/18 12/16/18 12/17/18 12/18/18 23:59 23:59 23:59 23:59 Intake Total 2289.8 610 Output Total 1200 950 Balance 1089.8 -340 - Objective General Appearance: positive: Alert, Mild distress (C/O TRAN) - Lab Results Fish Bones: 12/18/18 19:10 Other Labs: Lab Results x24hrs 12/18/18 12/18/18 12/18/18 Range/Units 19:10 06:20 01:40 WBC 9.7 12.0 H (4.8-10.8) x10^3/uL RBC 3.03 L 2.98 L (4.20-5.40) 10^6/uL Hgb 7.7 L 7.8 L (12.0-16.0) g/dL Hct 24.4 L 23.8 L (37.0-47.0) % MCV 80.5 L 79.8 L (81.0-99.0) fL MCH 25.3 L 26.3 L (27.0-31.0) pg MCHC 31.5 L 32.9 (32.0-36.0) g/dL RDW 15.5 H 15.4 H (12.0-15.0) % Plt Count 251 211 (130-450) 10^3/uL MPV 8.2 8.8 (7.9-10.8) fL Neut # (Auto) 5.7 8.8 H (1.5-6.6) 10^3/uL Lymph # (Auto) 2.9 2.3 (1.5-3.5) 10^3/uL [place] # (Auto) 0.8 0.7 (0.0-1.0) 10^3/uL Eos # (Auto) 0.2 0.1 (0.0-0.7) 10^3/uL Baso # (Auto) 0.1 0.0 (0.0-0.1) 10^3/uL Absolute Nucleated RBC 0.00 0.00 x10^3/uL Nucleated RBC % 0.0 0.0 /100WBC Blood Type O NEGATIVE Maternal Bleed NEGATIVE (NEGATIVE) Assessment/Plan - Problem List (2) Anemia affecting Impression: Pt not tolerating Anemia well. Discussed Transfusion. Risks blood borne Dz, Rxn. Possible Epidural TRAN Transfuse 2 units PRBC
[2018-12-19] MEDS: IBUPROFEN 600 MG TABLET PO SCH ×2 (04:16→11:40)
[2018-12-19 06:45] LABS: BASOPHILS % (AUTO) 0.4 %; EOSINOPHILS # (AUTO) 0.3 10^3/uL (0.0-0.7); EOSINOPHILS % (AUTO) 2.7 %; HGB - HEMOGLOBIN 9.7 g/dL (12.0-16.0); LYMPHOCYTES # (AUTO) 2.8 10^3/uL (1.5-3.5); LYMPHOCYTES % (AUTO) 27.4 %; MEAN CORPUSCULAR HEMOGLOBIN 26.7 pg (27.0-31.0); MEAN CORPUSCULAR HGB CONC 32.6 g/dL (32.0-36.0); MEAN CORPUSCULAR VOLUME 81.9 fL (81.0-99.0); MEAN PLATELET VOLUME 8.5 fL (7.9-10.8); MONOCYTES # (AUTO) 0.7 10^3/uL (0.0-1.0); MONOCYTES % (AUTO) 6.8 %; NEUTROPHILS # (AUTO) 6.5 10^3/uL (1.5-6.6); NEUTROPHILS % (AUTO) 62.7 %; PLT - PLATELET COUNT 235 10^3/uL (130-450); RED BLOOD COUNT 3.64 10^6/uL (4.20-5.40); RED CELL DISTRIBUTION WIDTH 16.4 % (12.0-15.0); WHITE BLOOD COUNT 10.3 x10^3/uL (4.8-10.8)
[2018-12-19] MEDS: ACETAMINOPHEN 500 MG TABLET PO SCH (07:05)
--- NOTE | 2018-12-19 11:02 | PROVIDER PROGRESS NOTE ---
Subjective - Prog Note Date Prog Note Date: 12/19/18 Prog Note Time: 11:00 - Subjective Pt reports feeling: Improved (Pt feels markedly improved. TRAN vastly in proved following blood Patch and transfusion.) Objective - Vital Signs/Intake & Output Reviewed Vital Signs: Yes Vital Signs: Vital Signs x48h Temp Pulse Pulse Pulse Resp BP BP 12/19/18 10:32 36.8 C 74 74 16 118/72 12/19/18 05:57 36.6 C 65 16 124/80 Pulse Ox 12/19/18 10:32 99 12/19/18 05:57 Intake & Output: Intake & Output 12/16/18 12/17/18 12/18/18 12/19/18 23:59 23:59 23:59 23:59 Intake Total 2289.8 610 750 Output Total 1200 950 Balance 1089.8 -340 750 - Objective General Appearance: positive: No acute distress (Pt sitting in bed.), Alert Respiratory: positive: Chest non-tender, No respiratory distress, Breath sounds nml Cardiovascular: positive: Regular rate & rhythm, No murmur, No gallop Abdomen: positive: Non-tender, No distention Skin: positive: Color nml, No rash, Warm, Dry Extremities: positive: Other (Epidural site no erythema.). negative: Calf tenderness Neurologic/Psychiatric: positive: Oriented x3 - Lab Results Fish Bones: 12/19/18 06:32 Other Labs: Lab Results x24hrs 12/19/18 12/18/18 12/17/18 Range/Units 06:32 19:10 01:10 WBC 10.3 9.7 (4.8-10.8) x10^3/uL RBC 3.64 L 3.03 L (4.20-5.40) 10^6/uL Hgb 9.7 L 7.7 L (12.0-16.0) g/dL Hct 29.8 L 24.4 L (37.0-47.0) % MCV 81.9 80.5 L (81.0-99.0) fL MCH 26.7 L 25.3 L (27.0-31.0) pg MCHC 32.6 31.5 L (32.0-36.0) g/dL RDW 16.4 H 15.5 H (12.0-15.0) % Plt Count 235 251 (130-450) 10^3/uL MPV 8.5 8.2 (7.9-10.8) fL Neut # (Auto) 6.5 5.7 (1.5-6.6) 10^3/uL Lymph # (Auto) 2.8 2.9 (1.5-3.5) 10^3/uL [place] # (Auto) 0.7 0.8 (0.0-1.0) 10^3/uL Eos # (Auto) 0.3 0.2 (0.0-0.7) 10^3/uL Baso # (Auto) 0.0 0.1 (0.0-0.1) 10^3/uL Absolute Nucleated RBC 0.01 0.00 x10^3/uL Nucleated RBC % 0.1 0.0 /100WBC Blood Type Cancelled Antibody Screen Cancelled Crossmatch IS Only See Detail Assessment/Plan - Problem List (1) (spontaneous vaginal delivery) Impression: Epidural TRAN resolved. Pain 1-2/10 Discharge meds Oxycodone 5 mg Motrin 800 mg Colace 100 mg Reviewed breast feeding mastitis reasons to breast feed discussed contraception (2) Anemia affecting Impression: Transfused 2 units Hgb 9.7 pt to continue PNV add Iron
--- NOTE | 2018-12-19 11:16 | Discharge Plan ---
Discharge Plan Disposition: 01 Home, Self Care Condition: Good Diet: Regular Activity Restrictions: pelvic rest 6 weeks Shower Restrictions: No Driving Restrictions: No No Smoking: If you smoke, Please STOP! Call for help. Follow-up with: Jose F Cooney DO [Primary Care Provider] -
[2018-12-19 11:33] VITALS: BP 128/86
[2018-12-19] MEDS: DOCUSATE SODIUM 100 MG CAPSULE PO SCH (11:40)
[2018-12-19] MEDS ORDERED: RHO(D) IMMUNE GLOBULIN 300 MCG SYRINGE IM ONE (12:00)
--- NOTE | 2018-12-19 13:01 | DISCHARGE SUMMARY ---
Physician: Jonn Glaser MD DATE OF ADMISSION: 12/17/2018 DATE OF DISCHARGE: 12/19/2018 ADMITTING DIAGNOSES 1. A 33-year-old G4, P1, whose EGA was 40 weeks 0.0 days. 2. Anemia. 3. Active labor. DISCHARGE DIAGNOSES 1. A 33-year-old G4, P1, whose EGA was 40 weeks 0.0 days. 2. Active labor. 3. Augmentation. 4. Anemia. 5. Epidural headache. PROCEDURES 1. Epidural. 2. Augmentation. 3. Spontaneous vaginal delivery. 4. Second-degree laceration with repair. 5. Transfusion 2 units packed cells. 6. Blood patch. PRESENTING HISTORY: Patient is a 33-year-old female. She is a 4, para 1, AB 2 female, due date was 17 December 2018. This made her 40 weeks EGA. She transferred her care at 27 weeks. care was unremarkable with the exception of elevated 50 gram glucola and a normal 3-hour GTT. She was also noted to have anemia during her . Her blood type is noted to be O negative, and she received RhoGAM. LABORATORY: Upon admission, patient's hemoglobin was 9.8. Following delivery it fell to a chris of 7.7, and following transfusion of 2 units, she rebounded to 9.7 grams of hemoglobin. Her platelets remained stable throughout, starting at 297 and ending at 235. White count on admission was 11.5, and fell to 10.3 on discharge. HOSPITAL COURSE: Patient was admitted and was nehal regularly. However, with time, this appeared to resolve, but since she was scheduled for induction the same day, she was kept in the hospital. She had Pitocin utilized to augment her. She had an epidural placed. There was some difficulty, and multiple punctures had to be made. The epidural eventually functioned well. At time of delivery, she suffered a second-degree laceration at her previous episiotomy site. Her delivery showed a head, which was right occiput anterior. She delivered, at 2014 hours, a live female , scores 8 and 9, weighing 7 pounds 5 ounces. The infant did quite well. , however, patient developed an increased anemia. She started on admission at 9.7 and fell to 7.7. She became symptomatic with headache, lightheadedness, tachycardia. She also had what appeared to be an epidural headache. She received 2 units of packed red blood cells and then also a blood patch. Following this, her headache has almost completely resolved. She feels markedly improved. She is being discharged to home today. DISCHARGE MEDICATIONS 1. Oxycodone 5 mg #10. 2. Motrin 800 mg. 3. Colace 100 mg. We have discussed the issues of contraception. 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 I reminded her that she needs to have a plan in place. We discussed the issues of breast feeding and its advantages and needing to monitor for mastitis. TD: 12/19/2018 11:25 Revised 12/23/18@1536 chu [facility] Date corrected to 12/19 Orig. signed 12/22/18@1530 JENNY
--- NOTE | 2018-12-19 17:52 | Labor Flowsheet ---
Labor Flowsheet Datetime Report Generated by CPN: 12/19/2018 17:52 Datetime: 12/19/2018 10:46 VITAL SIGNS NBP Sys/Zelda/Mean (mmHg): 128 : 86 : 96 Pulse: 89 LaborFlag: Labor Datetime: 12/19/2018 05:39 SpO2 (%): 97 Datetime: 12/17/2018 20:50 Membranes Ruptured Date/Time: 12/17/2018 17:15 Datetime: 12/17/2018 20:19 Stage 2 Comments: Placenta delivered @ 2019. Intact, routine discharge Datetime: 12/17/2018 20:14 UTERINE ACTIVITY Monitor Mode: External Frequency (min): 2-2.5 Quality: Strong Duration (sec): 30-80 Pattern: Normal: <= 5 Contractions in 10 Minutes Resting Tone (Palpate): Relaxed ASSESSMENT A Monitor Mode: External US FHR Baseline Rate : 135 Variability: Moderate 6-25 bpm Accelerations: None Decelerations: Early; Late; Variable Actions for Decelerations: Oxygen Applied; IV Bolus Category: Category II Datetime: 12/17/2018 20:00 TEACHING Labor/Induction: Pushing Methods STAGE 2 Pushing: Urge to Push Pushing Position: Pushing with Contractions; Pushing Lithotomy Pushing Progress: Descent with Pushing; Pushing Effectively with Contractions Datetime: 12/17/2018 19:46 VAGINAL EXAM Dilatation (cm): 10.0 Effacement (%): 100 Station: 2 Exam by: dr moreno Vaginal Bleeding: Normal Show Cervix, Consistency: Soft Cervix, Position: Anterior Position 'A': Right Occipital Transverse Datetime: 12/17/2018 19:45 Oxygen Amount (LPM): 10 Oxygen Method: Nasal Cannula Datetime: 12/17/2018 19:15 PAIN Pain Scale: 3 Pain Coping: Talking Through Contractions Pain Assessment Comments: pain is better after epidural bolus given by val shelton Datetime: 12/17/2018 19:08 Epidural Procedure Other: Single Dose Datetime: 12/17/2018 19:05 COMMUNICATION Communication: Provider at Bedside Communication Comments: val shelton at bedside Datetime: 12/17/2018 19:00 Respirations: 17 Temperature (C): 36.7 FHR Baseline Changes: No Baseline Change Datetime: 12/17/2018 18:57 Anesthesia Comments: epidural settings changed by val shelton Datetime: 12/17/2018 18:39 Patient Position/Activity: High Fowlers Patient Care Comments: frog legs Datetime: 12/17/2018 18:19 MEDICATIONS Pitocin (milliunits): Increased to @ 5 Datetime: 12/17/2018 18:05 Anesthesia Level Check: T11 Datetime: 12/17/2018 17:45 Comments: min-mod Datetime: 12/17/2018 17:16 Membrane Status: Ruptured Membranes Rupture Method: Artificial Amniotic Fluid Color: Clear Amniotic Fluid Amount: Moderate Datetime: 12/17/2018 15:15 Pitocin Checklist: At Least 1 Acceleration of 15 bpm x 15 Seconds in 30 Minutes or Adequate Variabi lity; No More than 1 Late Deceleration Occurred in Past 30 Minutes; No More than 2 Variable Decelerat ions > 60 Seconds in Duration and decreasing >60 bpm in 30 minutes; No More than 5 Uterine Contractio ns in 10 Minutes for any 20 Minute Interval; Uterus Palpates Soft between Contractions Datetime: 12/17/2018 15:11 I/O Interventions: Carter Cath Inserted Datetime: 12/17/2018 13:45 Monitor Interventions for UA: [place] Adjusted Monitor Interventions for FHR: Ultrasound Adjusted Datetime: 12/17/2018 13:05 Magnesium/Antihypertensives: Ephedrine IV (mg) @ 10 Datetime: 12/17/2018 13:02 PATIENT CARE IV/Blood Work: IV Bolus Started Datetime: 12/17/2018 13:00 Contraction Comments: pt leaned over. unable to assess ctx pattern Datetime: 12/17/2018 12:53 Epidural Procedure: Test Dose Datetime: 12/17/2018 11:57 Medication Comments: per pt request. epidural attempt x4. waiting for another anethesia. pt would l sander pit off until epidural in Datetime: 12/17/2018 11:10 PROCEDURE TIME OUT Procedure Verify: Correct Patient Identity; Correct Side and Site are Marked; Agreement on Procedur e to be Done; Correct Patient Position; Addressed Need to Administer Antibiotics or Fluids for Irriga tion; Safety Precautions Based on Patient History or Medication Use ANESTHESIA Anesthesia Plans: Epidural Epidural Positioning: Sitting Datetime: 12/17/2018 08:00 Stage of : Labor Pain Presence: Intermittent Pain Type: Cramping; Contraction; Pressure Pain Location: Back; Right Groin; Left Groin Pain Relief Measures: Comfort Measures Datetime: 12/17/2018 05:19 Pain Goal: 6 Datetime: 12/17/2018 04:01 Comfort Measures: Breathing/Relaxation Datetime: 12/16/2018 23:58 MATERNAL ASSESSMENT Level of Consciousness: Fully Conscious DTR's/Clonus: DTRs 3+; No Clonus Headache: Denies Breath Sounds, Left: Clear and Equal Breath Sounds, Right: Clear and Equal Nausea/Vomiting: Denies RUQ Epigastric Pain: Denies
== END 2018-12-19 16:00 | disposition home or self-care (01) | DRG 806 ==
LOC: WFO 20:05 → FBP 20:06 → WFO 23:47
PROVIDERS: ADMIT Obstetrics & Gynecology; ATTEND Obstetrics & Gynecology
PROC: 10E0XZZ Delivery of Products of Conception, External Approach (ICD-10-PCS; principal; 2018-12-17)
PROC: 0KQM0ZZ Repair Perineum Muscle, Open Approach (ICD-10-PCS; 2018-12-17)
PROC: 10907ZC Drainage of Amniotic Fluid, Therapeutic from Products of Conception, Via Natural or Artificial Opening (ICD-10-PCS; 2018-12-17)
PROC: 30233N1 Transfusion of Nonautologous Red Blood Cells into Peripheral Vein, Percutaneous Approach (ICD-10-PCS; 2018-12-18)
PROC: 3E0R3GC Introduction of Other Therapeutic Substance into Spinal Canal, Percutaneous Approach (ICD-10-PCS; 2018-12-19)
DX: O70.1 Second degree perineal laceration during delivery (principal); D62 Acute posthemorrhagic anemia; Z37.0 Single live birth; N99.820 Postprocedural hemorrhage of a genitourinary system organ or structure following a genitourinary system procedure; O99.02 Anemia complicating childbirth; O89.4 Spinal and epidural anesthesia-induced headache during the puerperium; O75.89 Other specified complications of labor and delivery; Z67.41 Type O blood, Rh negative; Z3A.39 39 weeks gestation of pregnancy
CPT/HCPCS: 36415; 62273; 83033; 85025; 86850; 86900; 86901; 86920; 99213

== ENCOUNTER 2018-12-31 11:17 | Outpatient (CLI) | payer OTHER ==
[2018-12-31 11:33] LABS: BASOPHILS # (AUTO) 0.1 10^3/uL (0.0-0.1); EOSINOPHILS # (AUTO) 0.2 10^3/uL (0.0-0.7); EOSINOPHILS % (AUTO) 3.3 %; HGB - HEMOGLOBIN 11.8 g/dL (12.0-16.0); LYMPHOCYTES # (AUTO) 2.5 10^3/uL (1.5-3.5); LYMPHOCYTES % (AUTO) 33.9 %; MEAN CORPUSCULAR HEMOGLOBIN 26.5 pg (27.0-31.0); MEAN CORPUSCULAR HGB CONC 32.7 g/dL (32.0-36.0); MEAN CORPUSCULAR VOLUME 81.1 fL (81.0-99.0); MEAN PLATELET VOLUME 7.7 fL (7.9-10.8); MONOCYTES # (AUTO) 0.3 10^3/uL (0.0-1.0); MONOCYTES % (AUTO) 4.4 %; NEUTROPHILS # (AUTO) 4.3 10^3/uL (1.5-6.6); NEUTROPHILS % (AUTO) 57.4 %; PLT - PLATELET COUNT 322 10^3/uL (130-450); RED BLOOD COUNT 4.46 10^6/uL (4.20-5.40); RED CELL DISTRIBUTION WIDTH 17.4 % (12.0-15.0); WHITE BLOOD COUNT 7.5 x10^3/uL (4.8-10.8)
== END 2018-12-31 11:18 | disposition home or self-care (01) ==
LOC: LAB 11:17
PROVIDERS: ATTEND Obstetrics & Gynecology
DX: D64.9 Anemia, unspecified (principal); R00.2 Palpitations
CPT/HCPCS: 36415; 84443; 85025

== ENCOUNTER 2020-03-28 17:27 | Outpatient (CLI) | payer OTHER ==
--- NOTE | 2020-03-29 08:36 | Ultrasound Report ---
Reason: MENORRHAGIA Procedure Date: 03/28/2020 Accession Number: [id number] / [id number] Procedure: US - Pelvic w/Transvaginal CPT Code: Final Report FULL RESULT: PROCEDURE: Pelvic w/Transvaginal INDICATIONS: MENORRHAGIA TECHNIQUE: Real-time scanning was performed of the pelvic organs, with image documentation. Additional endovaginal scanning was necessary due to incomplete visualization of the adnexal and endometrial structures by transabdominal scanning. COMPARISON: CT abdomen pelvis 06/22/2017. FINDINGS: Transabdominal scanning: Limited scanning through the kidneys demonstrates no hydronephrosis. No pathologic free abdominal or pelvic fluid. Endovaginal scanning: Uterus: Uterus measures 7 x 3.6 x 4.8 cm. Uterine echotexture is mildly heterogeneous without discrete mass visualized. The endometrium measures 0.3 cm in combined thickness. There are small nabothian cysts noted. Ovaries: The right ovary measures 3.1 x 1.6 x 2 cm and the left ovary measures 2.8 x 1.7 x 1.9 cm. No discrete adnexal masses. There is vascularity demonstrated within the ovaries on color Doppler interrogation. IMPRESSION: 1. Normal sonographic study of the pelvis. Reviewed by: Brown Galvez MD on 03/29/2020 8:35 AM PDT Approved by: Brown Galvez MD on 03/29/2020 8:35 AM PDT Station ID: [id number]
== END 2020-03-28 17:28 | disposition home or self-care (01) ==
LOC: DI 17:27
PROVIDERS: ATTEND Obstetrics & Gynecology
DX: N92.0 Excessive and frequent menstruation with regular cycle (principal); D64.9 Anemia, unspecified
CPT/HCPCS: 76830; 76856

== ENCOUNTER 2020-09-25 08:00 | Outpatient (CLI) | payer OTHER ==
[2020-09-25 18:27] LABS: BASOPHILS # (AUTO) 0.1 10^3/uL (0.0-0.1); BASOPHILS % (AUTO) 0.7 %; EOSINOPHILS # (AUTO) 0.2 10^3/uL (0.0-0.7); EOSINOPHILS % (AUTO) 2.3 %; HGB - HEMOGLOBIN 13.1 g/dL (12.0-16.0); LYMPHOCYTES # (AUTO) 2.9 10^3/uL (1.5-3.5); LYMPHOCYTES % (AUTO) 30.5 %; MEAN CORPUSCULAR HEMOGLOBIN 29.6 pg (27.0-31.0); MEAN CORPUSCULAR HGB CONC 32.5 g/dL (32.0-36.0); MEAN PLATELET VOLUME 10.5 fL (7.9-10.8); MONOCYTES # (AUTO) 0.6 10^3/uL (0.0-1.0); MONOCYTES % (AUTO) 6.1 %; NEUTROPHILS # (AUTO) 5.7 10^3/uL (1.5-6.6); PLT - PLATELET COUNT 328 10^3/uL (130-450); RED BLOOD COUNT 4.43 10^6/uL (4.20-5.40); RED CELL DISTRIBUTION WIDTH 12.3 % (12.0-15.0); WHITE BLOOD COUNT 9.6 x10^3/uL (4.8-10.8)
[2020-09-25 18:40] LABS: ALBUMIN 4.3 g/dL (3.2-5.5); ALBUMIN/GLOBULIN RATIO 1.3 (1.0-2.2); BILIRUBIN,TOTAL 0.7 mg/dL (0.2-1.0); CALCIUM 9.5 mg/dL (8.5-10.3); CREATININE 0.6 mg/dL (0.4-1.0); TOTAL PROTEIN 7.7 g/dL (6.7-8.2)
== END 2020-09-25 23:59 | disposition home or self-care (01) ==
LOC: LAB.WCP 08:00
PROVIDERS: ATTEND Family Medicine
DX: L50.9 Urticaria, unspecified (principal)
CPT/HCPCS: 36415; 80050; 85651; 86140